=== PATIENT | male | born 1975 | race African-American/Black ===

== ENCOUNTER 2021-04-09 07:53 | Emergency (ER) | payer SELFPAY ==
[~2021-04-09] VITALS: Ht 170.2 cm; Wt 106.0 kg
[2021-04-09] MEDS ORDERED: ONDANSETRON HCL 4MG/2ML INJ IV STA (08:37)
[2021-04-09] MEDS ORDERED: MORPHINE SULFATE 4 MG/ML CPJ (NOT FOR IM USE) IV STA (08:37)
[2021-04-09] MEDS ORDERED: SODIUM CHLORIDE 0.9% 1,000 ML IV ONE (08:45)
[2021-04-09 09:28] LABS: EOSINOPHILS % 1.5 % (0.0-5.0); HEMATOCRIT. 47.2 % (42.0-52.0); LYMPHOCYTES % 20.8 % (20.0-50.0); MEAN CORPUSCULAR HEMOGLOBIN 27.5 pg (28.0-32.0); MEAN CORPUSCULAR VOLUME 81.4 fL (80.0-94.0); MEAN PLATELET VOLUME 8.9 fl (7.4-10.4); MONOCYTES % 7.9 % (2.0-8.0); NEUTROPHILS % 68.8 % (40.0-76.0); PLATELET 283 x1000/uL (130-400); RED CELL DISTRIBUTION WIDTH 14.2 % (11.6-14.6)
[2021-04-09 09:34] LABS: CHLORIDE 109 mEq/L (98-107)
[2021-04-09 09:39] LABS: PARTIAL THROMBOPLASTIN TIME 30.4 sec (23.4-31.0); PROTHROMBIN TIME 10.4 sec (9.6-11.0)
[2021-04-09 11:30] VITALS: BP 138/85
[2021-04-09] MEDS ORDERED: IOHEXOL-300 100 ML BOTTLE ONE (11:51)
[2021-04-09] MEDS ORDERED: IBUP-2028 MT (13:05)
== END 2021-04-09 13:23 | disposition home or self-care (01) ==
LOC: ER 07:53
DX: R10.11 Right upper quadrant pain (principal); R07.81 Pleurodynia; V43.52XA Car driver injured in collision with other type car in traffic accident, initial encounter; Y93.89 Activity, other specified; Y92.488 Other paved roadways as the place of occurrence of the external cause
CPT/HCPCS: 36415; 71045; 71260; 74177; 80053; 83690; 84484; 85025; 85610; 85730; 93005; 96361; 96374; 96375; 99285; J2270; J2405; J7030; Q9967; Z7610